=== PATIENT | male | born 2000 | race Caucasian/White ===

== ENCOUNTER 2022-02-02 15:46 | Inpatient (IN) ==
[2022-02-02 16:07] LABS: Basophils % 0.1 %; Eosinophils % 0.1 %; Hematocrit 43.8 % (37.5-50.1); Hemoglobin 15.3 g/dL (12.9-16.9); Immature Granulocytes % 0.4 % (0-4); Lymphocytes # 1.2 K/mcL (0.6-4.6); Lymphocytes % 8.2 %; Mean Corpuscular HGB Conc 34.9 g/dL (31.6-35.5); Mean Corpuscular Hemoglobin 29.5 pg (28.0-33.3); Mean Corpuscular Volume 84.6 fL (83.0-100.0); Mean Platelet Volume 11.6 fL (9.4-12.4); Monocytes # 0.9 K/mcL (0.0-1.3); Monocytes % 6.4 %; Platelet Count 149 K/mcL (140-400); Red Blood Count 5.18 M/mcL (4.19-5.50); Red Cell Distribution Width 13.2 % (11.5-14.5); Segmented Neutrophils % 84.8 %; White Blood Count 14.2 K/mcL (4.3-11.1)
[2022-02-02 16:08] LABS: INR 1.2; Prothrombin Time 13.1 Seconds (9.4-12.1)
[2022-02-02 16:11] LABS: Activated Partial Thrombo Time 33.7 Seconds (26.0-36.0)
[2022-02-02 16:15] LABS: Alanine Aminotransferase 9 Units/L (7-52); Albumin 5.3 g/dL (3.5-5.7); Albumin/Globulin Ratio 2.3 (1.1-2.2); Alkaline Phosphatase 57 Units/L (34-104); Aspartate Amino Transferase 13 Units/L (13-39); BUN/Creatinine Ratio 16 (6-26); Bilirubin,Total 0.7 mg/dL (0.3-1.0); Blood Urea Nitrogen 18 mg/dL (6-20); Calcium 10.2 mg/dL (8.6-10.3); Carbon Dioxide 19 mEq/L (23-29); Chloride 101 mEq/L (98-107); Globulin 2.3 g/dL (2.4-3.5); Glucose 110 mg/dL (70-105); Osmolality,Calculated 287 (280-300); Potassium 4.3 mEq/L (3.5-5.1); Sodium 137 mEq/L (136-145); Total Protein 7.6 g/dL (6.4-8.9)
[2022-02-02] MEDS ORDERED: Sulfamethoxazole/Trimeth DS 1 EACH TABLET PO ONE (17:07)
[2022-02-02] MEDS ORDERED: *HR* LORazepam 2 MG/ML VIAL ONE (17:14)
[2022-02-02] MEDS ORDERED: levETIRAcetam 1,000 MG in 0.9 % Sodium Chloride 100 ML IVPB STA (17:20)
[2022-02-02] MEDS ORDERED: *HR* LORazepam 2 MG/ML VIAL IVP ONE (17:20)
[2022-02-02] MEDS ORDERED: diazePAM 10 MG/2 ML SYRINGE IVP ONE (17:26)
[2022-02-02] MEDS ORDERED: 0.9 % Sodium Chloride 1,000 ML IV ONE (19:32)
[2022-02-02 21:16] LABS: Bilirubin,Urine Negative (Negative); Blood,Urine Trace-lysed (Negative); Clarity,Urine Slightly Cloudy (Clear); Color,Urine Yellow (Yellow); Glucose,Urine (UA) Normal (Normal); Ketones,Urine 15 mg/dL (Negative); Leukocyte Esterase,Urine Negative (Negative); Nitrite,Urine Negative (Negative); PH,Urine 5.5 pH Units (5.0-8.0); Protein,Urine 30 mg/dL (Neg-Trace); Specific Gravity,Urine >= 1.030 (1.010-1.025); Urobilinogen,Urine Normal (Normal)
[2022-02-02 21:31] LABS: Mucus,Urine Few per lpf (None-Few); RBC,Urine 0-3 per hpf (0-3); Squamous Epithelial Cell,Urine Few per hpf (None-Few); WBC,Urine 0-3 per hpf (0-3)
[2022-02-02 21:35] LABS: Amorphous Sediment,Urine Few per hpf (None-Few)
[2022-02-02 21:36] LABS: Bacteria,Urine Few per hpf (None-Few)
[2022-02-02] MEDS ORDERED: Ketorolac 30 MG/ML VIAL IVP ONE (23:54)
[2022-02-03] MEDS ORDERED: Sulfamethoxazole/Trimeth DS 1 EACH TABLET PO ONE (08:27)
[2022-02-03 08:44] LABS: Basophils % 0.2 %; Eosinophils # 0.1 K/mcL (0.0-0.6); Eosinophils % 0.5 %; Hematocrit 40.9 % (37.5-50.1); Hemoglobin 14.3 g/dL (12.9-16.9); Immature Granulocytes % 0.2 % (0-4); Lymphocytes # 2.1 K/mcL (0.6-4.6); Lymphocytes % 20.2 %; Mean Corpuscular Hemoglobin 29.4 pg (28.0-33.3); Mean Platelet Volume 11.9 fL (9.4-12.4); Monocytes % 9.3 %; Neutrophils # 7.2 K/mcL (1.6-8.9); Platelet Count 150 K/mcL (140-400); Red Blood Count 4.87 M/mcL (4.19-5.50); Red Cell Distribution Width 13.2 % (11.5-14.5); Segmented Neutrophils % 69.6 %; White Blood Count 10.3 K/mcL (4.3-11.1)
[2022-02-03 09:00] LABS: Alanine Aminotransferase 10 Units/L (7-52); Albumin/Globulin Ratio 2.4 (1.1-2.2); Alkaline Phosphatase 51 Units/L (34-104); Aspartate Amino Transferase 15 Units/L (13-39); BUN/Creatinine Ratio 16 (6-26); Blood Urea Nitrogen 16 mg/dL (6-20); Calcium 9.5 mg/dL (8.6-10.3); Carbon Dioxide 23 mEq/L (23-29); Chloride 104 mEq/L (98-107); Globulin 2.1 g/dL (2.4-3.5); Glucose 91 mg/dL (70-105); Osmolality,Calculated 287 (280-300); Potassium 3.5 mEq/L (3.5-5.1); Sodium 138 mEq/L (136-145); Total Protein 7.1 g/dL (6.4-8.9)
[2022-02-03] MEDS ORDERED: Ondansetron ODT 4 MG TAB.RAPDIS SL PRN (16:42)
[2022-02-03] MEDS ORDERED: Mag Hydrox/Al Hydrox/Simeth 30 ML UDC PO PRN (16:42)
[2022-02-03] MEDS ORDERED: Ondansetron 4 MG/2 ML VIAL IVP PRN (16:42)
[2022-02-03] MEDS ORDERED: Acetaminophen 325 MG TABLET PO PRN (16:42)
[2022-02-03] MEDS ORDERED: Melatonin 3 MG TABLET PO PRN (16:42)
[2022-02-03] MEDS ORDERED: Naloxone 0.4 MG/ML INJ IVP PRN (16:42)
[2022-02-03] MEDS ORDERED: MOM Conc 10 ML UD.LIQ PO PRN (16:42)
[2022-02-03] MEDS ORDERED: *HR* LORazepam 2 MG/ML VIAL IVP PRN (16:47)
[2022-02-03 19:36] VITALS: BP 118/72; PULSE 78; RESP 19; TEMP 98.2; O2SAT 98
[2022-02-03] MEDS ORDERED: levETIRAcetam 1,000 MG in 0.9 % Sodium Chloride 100 ML IVPB SCH (21:00)
== END 2022-02-03 21:45 | disposition short-term general hospital (02) | DRG 53 ==
LOC: EMEROOGRE 15:46 → INPGRE 15:46
PROVIDERS: ADMIT Family Medicine; ATTEND Family Medicine